=== PATIENT | female | born 1950 | race African-American/Black ===

== ENCOUNTER 2017-03-27 22:50 | Emergency (ER) | payer MEDICARE, OTHER ==
[~2017-03-27] VITALS: Ht 165.1 cm; Wt 55.0 kg
[~2017-03-27 22:50] MED LIST: ATROV INH; FLUT1DIS5 INH
[2017-03-28 00:59] VITALS: BP 108/63
== END 2017-03-28 01:01 | disposition home or self-care (01) ==
LOC: ER 22:57
DX: J45.901 Unspecified asthma with (acute) exacerbation (principal); F10.129 Alcohol abuse with intoxication, unspecified; Y90.9 Presence of alcohol in blood, level not specified
CPT/HCPCS: 99283

== ENCOUNTER 2017-05-12 12:39 | Inpatient (IN) | payer MEDICARE, OTHER ==
[~2017-05-12] VITALS: Ht 165.1 cm; Wt 54.9 kg
[2017-05-12] MEDS ORDERED: METHYLPREDNISOLONE SOD SUCC 125 MG/2 ML VIAL IV STA (13:13)
[2017-05-12] MEDS ORDERED: IPRATROPIUM/ALBUTEROL 0.5-3(2.5)MG/3ML NEB HHN ONE (13:15)
[2017-05-12 14:07] LABS: HEMATOCRIT. 38.4 % (36.0-48.0); HEMOGLOBIN. 12.2 g/dL (12.0-16.0); MEAN CORPUSCULAR HEMOGLOBIN 27.1 pg (28.0-32.0); MEAN CORPUSCULAR VOLUME 84.9 fL (81.0-99.0); MEAN PLATELET VOLUME 8.8 fl (7.4-10.4); PLATELET 188 x1000/uL (130-400); RED BLOOD CELL COUNT 4.52 mill/uL (4.2-5.4); RED CELL DISTRIBUTION WIDTH 19.7 % (11.6-14.6)
[2017-05-12] MEDS ORDERED: IPRATROPIUM/ALBUTEROL 0.5-3(2.5)MG/3ML NEB ONE (14:13)
[2017-05-12 14:18] LABS: PARTIAL THROMBOPLASTIN TIME 26.1 sec (23.4-31.0)
[2017-05-12 14:25] LABS: CARBON DIOXIDE 25 mEq/L (21-32); CHLORIDE 102 mEq/L (98-107); TROPONIN I 0.14 ng/mL (0.00-0.04)
[2017-05-12 14:41] LABS: PLATELET ESTIMATE NORMAL
[2017-05-12] MEDS ORDERED: NITROGLYCERIN OINT 1GM/INCH UDPKT TD ONE (15:45)
[2017-05-12] MEDS ORDERED: AZITHROMYCIN 500 MG in DEXT 5% WATER 250 ML IV ONE (15:45)
[2017-05-12] MEDS ORDERED: CEFTRIAXONE 1 G PREMIX 50 ML IV ONE (15:45)
[2017-05-12] MEDS ORDERED: SODIUM CHLORIDE 0.9% 1000ML BAG (SEPSIS BOLUS) IV ONE (15:45)
[2017-05-12] MEDS ORDERED: ASPIRIN 325MG EC TABLET PO ONE (15:45)
[2017-05-12] MEDS ORDERED: DOCUSATE SODIUM 100MG CAPSULE PO PRN (16:30)
[2017-05-12] MEDS ORDERED: CEFTRIAXONE 1 G PREMIX 50 ML IV SCH (16:30)
[2017-05-12] MEDS ORDERED: ACETAMINOPHEN 325MG TABLET PO PRN (16:30)
[2017-05-12] MEDS ORDERED: IPRATROPIUM/ALBUTEROL 0.5-3(2.5)MG/3ML NEB INH PRN (16:30)
[2017-05-12] MEDS ORDERED: AZITHROMYCIN 500 MG in SODIUM CHLORIDE 0.9% 250 ML IV NR (19:00)
[2017-05-12] MEDS: CLONIDINE 0.1MG TABLET PO PRN (19:54)
[2017-05-12] MEDS: MAGNESIUM/ALUMINUM HYDROXIDE/SIMETHICONE 30ML UDC PO PRN (19:54)
[2017-05-12] MEDS: HYDROCODONE/ACETAMINOPHEN 5/325MG TABLET PO PRN ×2 (19:55→23:55)
[2017-05-12] MEDS: ENOXAPARIN 40MG/0.4ML SYR SUBCUT SCH (19:57)
[2017-05-12] MEDS: ONDANSETRON HCL 4MG/2ML VIAL IV PRN (23:54)
[2017-05-13] VITALS (7 sets, daily range): BP systolic 102–164; BP diastolic 58–85
[2017-05-13] MEDS ORDERED: FLUTICASONE INH PRN (07:00)
[2017-05-13] MEDS ORDERED: MEDICATION NOT ON FORMULARY EA (Ipratropium Bromide (Atrovent Hfa) 2 PUFF) INH PRN (07:00)
[2017-05-13] MEDS ORDERED: SALMETEROL INH PRN (07:00)
[2017-05-13] MEDS: HYDROCODONE/ACETAMINOPHEN 5/325MG TABLET PO PRN ×2 (08:29→20:42)
[2017-05-13] MEDS: ASPIRIN 81MG EC TABLET PO SCH (08:29)
[2017-05-13] MEDS ORDERED: BUDESONIDE 0.5MG/2ML NEB HHN SCH (09:00)
[2017-05-13 09:29] LABS: BASOPHILS % 0.6 % (0.0-2.0); HEMATOCRIT. 33.9 % (36.0-48.0); HEMOGLOBIN. 11.1 g/dL (12.0-16.0); LYMPHOCYTES % 8.7 % (20.0-50.0); MEAN CORPUSCULAR HEMOGLOBIN 27.5 pg (28.0-32.0); MEAN CORPUSCULAR VOLUME 84.2 fL (81.0-99.0); MEAN PLATELET VOLUME 9.5 fl (7.4-10.4); MONOCYTES % 5.9 % (2.0-8.0); NEUTROPHILS % 84.8 % (40.0-76.0); PLATELET 201 x1000/uL (130-400); RED BLOOD CELL COUNT 4.02 mill/uL (4.2-5.4); RED CELL DISTRIBUTION WIDTH 19.5 % (11.6-14.6)
[2017-05-13 09:59] LABS: CARBON DIOXIDE 24 mEq/L (21-32); CHLORIDE 105 mEq/L (98-107); CREATINE KINASE 73 IU/L (26-192); CREATINE KINASE MB FRACTION 1.2 ng/mL (0.5-3.6); HDL CHOLESTEROL 86 mg/dL (40-59); LDL CHOLESTEROL 42 mg/dL (5-100); TROPONIN I 0.11 ng/mL (0.00-0.04)
[2017-05-13] MEDS ORDERED: SODIUM CHLORIDE 0.9% 1,000 ML IV ONE (10:15)
[2017-05-13] MEDS: AMLODIPINE 2.5MG TABLET PO SCH ×2 (11:18→20:42)
[2017-05-13 12:59] LABS: CLARITY URINE CLEAR (CLEAR); COLOR URINE YELLOW (YELLOW); KETONES URINE TRACE (NEGATIVE); LEUKOCYTE ESTERASE URINE 1+ (NEGATIVE); NITRITE URINE NEGATIVE (NEGATIVE); OCCULT BLOOD URINE NEGATIVE (NEGATIVE); PROTEIN URINE NEGATIVE (NEGATIVE); SPECIFIC GRAVITY URINE 1.027 (1.005-1.030); UROBILINOGEN URINE 0.2 E.U./dL (0.2-1.0)
[2017-05-13 13:59] LABS: *AMPHETAMINES SCREEN URINE NEGATIVE (NEGATIVE); *BARBITURATES SCREEN URINE NEGATIVE (NEGATIVE); *BENZODIAZEPINES SCREEN URINE NEGATIVE (NEGATIVE); *COCAINE SCREEN URINE NEGATIVE (NEGATIVE); CANNABINOID URINE SCREEN NEGATIVE (NEGATIVE); METHADONE URINE SCREEN NEGATIVE (NEGATIVE); OPIATES URINE SCREEN PRESUMTIVE POSITIVE (NEGATIVE); PHENCYCLIDINE URINE SCREEN NEGATIVE (NEGATIVE)
[2017-05-13] MEDS: MAGNESIUM/ALUMINUM HYDROXIDE/SIMETHICONE 30ML UDC PO PRN ×2 (14:03→19:43)
[2017-05-13] MEDS ORDERED: CEFTRIAXONE 1 G PREMIX 50 ML IV SCH (16:00)
[2017-05-13 16:57] LABS: CREATINE KINASE MB FRACTION 1.3 ng/mL (0.5-3.6); TROPONIN I 0.09 ng/mL (0.00-0.04)
[2017-05-13] MEDS: AZITHROMYCIN 500 MG TABLET PO SCH (17:21)
[2017-05-13] MEDS: ENOXAPARIN 40MG/0.4ML SYR SUBCUT SCH (20:44)
[2017-05-13] MEDS: CLONIDINE 0.1MG TABLET PO PRN (21:35)
[2017-05-13] MEDS: ONDANSETRON HCL 4MG/2ML VIAL IV PRN (22:57)
[2017-05-14] VITALS: BP 90/42
[2017-05-14 04:00] VITALS: BP 120/62
[2017-05-14] MEDS: HYDROCODONE/ACETAMINOPHEN 5/325MG TABLET PO PRN ×3 (06:55→18:36)
[2017-05-14 07:54] LABS: BASOPHILS % 0.4 % (0.0-2.0); EOSINOPHILS % 0.6 % (0.0-5.0); HEMATOCRIT. 31.2 % (36.0-48.0); HEMOGLOBIN. 10.3 g/dL (12.0-16.0); LYMPHOCYTES % 30.9 % (20.0-50.0); MEAN CORPUSCULAR HEMOGLOBIN 28.2 pg (28.0-32.0); MEAN CORPUSCULAR VOLUME 85.3 fL (81.0-99.0); MEAN PLATELET VOLUME 9.1 fl (7.4-10.4); NEUTROPHILS % 58.1 % (40.0-76.0); PLATELET 190 x1000/uL (130-400); RED BLOOD CELL COUNT 3.66 mill/uL (4.2-5.4); RED CELL DISTRIBUTION WIDTH 19.2 % (11.6-14.6)
[2017-05-14 08:00] VITALS: BP 146/70
[2017-05-14 09:02] LABS: CARBON DIOXIDE 24 mEq/L (21-32); CHLORIDE 109 mEq/L (98-107)
[2017-05-14] MEDS: MAGNESIUM/ALUMINUM HYDROXIDE/SIMETHICONE 30ML UDC PO PRN (09:02)
[2017-05-14] MEDS: AMLODIPINE 2.5MG TABLET PO SCH ×2 (09:04→21:42)
[2017-05-14] MEDS: ASPIRIN 81MG EC TABLET PO SCH (09:04)
[2017-05-14 12:00] VITALS: BP 122/87
[2017-05-14] MEDS: OMEPRAZOLE 20MG CAPSULE EXTENDED RELEASE PO SCH (13:36)
[2017-05-14 16:00] VITALS: BP 122/63
[2017-05-14] MEDS: AZITHROMYCIN 500 MG TABLET PO SCH (18:26)
[2017-05-14] MEDS ORDERED: CEFTRIAXONE 1,000 MG in DEXTROSE 5% WATER 50 ML IV SCH (19:00)
[2017-05-14 20:00] VITALS: BP 123/68
[2017-05-14] MEDS: ENOXAPARIN 40MG/0.4ML SYR SUBCUT SCH (21:43)
[2017-05-15] VITALS: BP 92/51
[2017-05-15] MEDS: MAGNESIUM/ALUMINUM HYDROXIDE/SIMETHICONE 30ML UDC PO PRN (00:14)
[2017-05-15 04:00] VITALS: BP 110/54
[2017-05-15] MEDS: HYDROCODONE/ACETAMINOPHEN 5/325MG TABLET PO PRN (05:06)
[2017-05-15 07:17] LABS: HEMATOCRIT. 35.2 % (36.0-48.0); HEMOGLOBIN. 11.6 g/dL (12.0-16.0); MEAN CORPUSCULAR VOLUME 84.9 fL (81.0-99.0); PLATELET 222 x1000/uL (130-400); RED BLOOD CELL COUNT 4.15 mill/uL (4.2-5.4); RED CELL DISTRIBUTION WIDTH 20.1 % (11.6-14.6)
[2017-05-15 08:00] VITALS: BP 105/57
[2017-05-15] MEDS: ASPIRIN 81MG EC TABLET PO SCH (08:36)
[2017-05-15] MEDS: OMEPRAZOLE 20MG CAPSULE EXTENDED RELEASE PO SCH (08:36)
[2017-05-15] MEDS: AMLODIPINE 2.5MG TABLET PO SCH (08:45)
[2017-05-15] MEDS ORDERED: SUCRALFATE 1 G/10 ML UDC PO NR (09:15)
[2017-05-15 10:40] LABS: CARBON DIOXIDE 26 mEq/L (21-32); CHLORIDE 105 mEq/L (98-107)
[2017-05-15 12:00] VITALS: BP 130/62
[2017-05-15 13:14] VITALS: BP 130/62
[2017-05-15 14:49] LABS: PLATELET ESTIMATE NORMAL
== END 2017-05-15 13:53 | disposition home or self-care (01) | DRG 871 ==
LOC: ER 12:42 → ENRESERV 22:31 → 7WST 05-13 05:34
PROVIDERS: ADMIT Internal Medicine; ATTEND Internal Medicine
DX: A41.9 Sepsis, unspecified organism (principal); J18.9 Pneumonia, unspecified organism; E87.2 Acidosis; J44.0 Chronic obstructive pulmonary disease with (acute) lower respiratory infection; J44.1 Chronic obstructive pulmonary disease with (acute) exacerbation; N39.0 Urinary tract infection, site not specified; D50.9 Iron deficiency anemia, unspecified; E05.90 Thyrotoxicosis, unspecified without thyrotoxic crisis or storm; I10 Essential (primary) hypertension; I45.10 Unspecified right bundle-branch block; K21.9 Gastro-esophageal reflux disease without esophagitis; R74.0 Nonspecific elevation of levels of transaminase and lactic acid dehydrogenase [LDH]; Z79.899 Other long term (current) drug therapy; I25.2 Old myocardial infarction
CPT/HCPCS: 36415; 71045; 80048; 80053; 80061; 80305; 81001; 82550; 82553; 83605; 83735; 83880; 84443; 84484; 85025; 85610; 85730; 87040; 87086; 87804; 93005; 93306; 93970; 94640; 96365; 96366; 96368; 96375; 99291; J0456; J0696; J1650; J2405; J2930; J7030; J7050; J7060; J7620

== ENCOUNTER 2021-03-20 21:54 | Emergency (ER) | payer MEDICARE, MEDICAID, OTHER ==
[~2021-03-20] VITALS: Ht 172.7 cm; Wt 55.0 kg
[2021-03-20 22:00] VITALS: BP 125/69
[2021-03-20] MEDS: ACETAMINOPHEN 500MG TABLET PO ONE (23:03)
== END 2021-03-21 03:56 | disposition home or self-care (01) ==
LOC: ER 21:54
DX: J44.9 Chronic obstructive pulmonary disease, unspecified (principal); I25.2 Old myocardial infarction; J45.909 Unspecified asthma, uncomplicated; Z99.81 Dependence on supplemental oxygen; Z86.73 Personal history of transient ischemic attack (TIA), and cerebral infarction without residual deficits
CPT/HCPCS: 71045; 93005; 99283